=== PATIENT | male | born 1990 | race American Indian/Alaskan Native ===

== ENCOUNTER 2017-11-12 22:30 | Emergency (ER) | payer OTHER, MEDICARE ==
[2017-11-12] MEDS: DUONEB *Not for PRN Use IH ONE ×2 (22:54→22:59)
[2017-11-12] MEDS ORDERED: TYLENOL ONE (23:04)
[2017-11-12] MEDS ORDERED: TYLENOL PO ONE ×2 (23:07→23:30)
[2017-11-12 23:18] LABS: Basophils % (Auto) 0.4 % (0.0-1.8); Hematocrit 47.4 % (35.5-45.6); Hemoglobin 16.1 gm/dl (11.8-15.2); Lymphocytes # (Auto) 0.6 K/mm3 (1.2-5.4); Lymphocytes % (Auto) 7.4 % (13.4-35.0); Mean Corpuscular HGB Conc 34 % (32-34); Mean Corpuscular Hemoglobin 33 pg (28-32); Mean Corpuscular Volume 96 fl (84-94); Monocytes # (Auto) 0.5 K/mm3 (0.0-0.8); Monocytes % (Auto) 6.1 % (0.0-7.3); Red Blood Count 4.92 M/mm3 (3.65-5.03); Red Cell Distribution Width 12.9 % (13.2-15.2)
[2017-11-12 23:23] LABS: Platelet Count 203 K/mm3 (140-440)
[2017-11-12 23:25] LABS: BUN/Creatinine Ratio 10; Blood Urea Nitrogen 11 mg/dL (9-20); Hemolysis Index 21
[2017-11-12] MEDS ORDERED: ATROVENT IH ONE (23:29)
[2017-11-12] MEDS ORDERED: XOPENEX IH ONE (23:29)
[2017-11-12] MEDS ORDERED: AUGMENTIN ORAL LIQD PO ONE (23:30)
--- NOTE | 2017-11-12 23:36 | Emergency Department Report ---
ED Asthma HPI - General Chief Complaint: Adult Asthma Stated Complaint: FEVER,ASTHMA Time Seen by Provider: 11/12/17 23:23 Source: patient Mode of arrival: Ambulatory Limitations: No Limitations - History of Present Illness Initial Comments: Patient is 27 years old male, mentally challenged, provided by parents with an episode of asthma exacerbation and fever since yesterday. Parents stated that he been having runny nose cough and congestion also. No vomiting. No other symptoms at this moment. Patient is nonverbal so history is taken from parents. MD Complaint: "asthma attack" -: days(s) Severity: moderate Context: recent URI Associated Symptoms: productive cough Treatments Prior to Arrival: inhaled bronchodilator - Related Data Home Medications Medication Instructions Recorded Confirmed Last Taken ALBUTEROL NEB's [Proventil 0.083% 1 ampul IH Q4H PRN 11/12/17 11/12/17 Unknown NEBS] Budesonide 1 unit IH BID 11/12/17 11/12/17 Unknown Allergies Allergy/AdvReac Type Severity Reaction Status Date / Time erythromycin base Allergy Rash Verified 11/12/17 22:41 morphine Allergy Rash Verified 11/12/17 22:40 ED Review of Systems ROS: Stated complaint: FEVER,ASTHMA Other details as noted in HPI Comment: Unobtainable due to pts medical conditions ED Past Medical Hx - Past Medical History Hx Asthma: Yes Additional medical history: Sinusitis, Developmentally delayed - Social History Smoking Status: Never Smoker Substance Use Type: None - Medications Home Medications: Home Medications Medication Instructions Recorded Confirmed Last Taken Type ALBUTEROL NEB's [Proventil 0.083% 1 ampul IH Q4H PRN 11/12/17 11/12/17 Unknown History NEBS] Budesonide 1 unit IH BID 11/12/17 11/12/17 Unknown History ED Physical Exam - General Limitations: No Limitations General appearance: alert, in no apparent distress - Head Head exam: Present: atraumatic, normocephalic - Eye Eye exam: Present: normal appearance - ENT ENT exam: Present: normal exam, normal orophraynx, mucous membranes moist - Neck Neck exam: Present: normal inspection, full ROM. Absent: tenderness, meningismus, lymphadenopathy - Respiratory Respiratory exam: Present: wheezes, rhonchi, prolonged expiratory. Absent: respiratory distress, rales, stridor, accessory muscle use, decreased breath sounds - Cardiovascular Cardiovascular Exam: Present: tachycardia - GI/Abdominal GI/Abdominal exam: Present: soft, normal bowel sounds. Absent: distended, tenderness, guarding, rebound, rigid, organomegaly, mass, bruit, pulsatile mass , hernia - Extremities Exam Extremities exam: Present: normal inspection, full ROM, normal capillary refill - Back Exam Back exam: Present: normal inspection, full ROM. Absent: CVA tenderness (L) - Neurological Exam Neurological exam: Present: alert - Skin Skin exam: Present: warm, intact, normal color ED Course Vital Signs 11/12/17 11/12/17 11/12/17 22:43 22:58 23:42 Temperature 100.4 F H 99.7 F H Pulse Rate 146 H 150 H Pulse Rate [ 80 Right Lower Lobe] Respiratory 28 H 24 Rate Respiratory 18 Rate [Right Lower Lobe] Blood Pressure 122/76 Blood Pressure 123/65 [Left] O2 Sat by Pulse 96 98 Oximetry 11/12/17 11/13/17 23:46 00:04 Temperature Pulse Rate Pulse Rate [ 82 Right Lower Lobe] Respiratory 150 H Rate Respiratory 18 Rate [Right Lower Lobe] Blood Pressure Blood Pressure [Left] O2 Sat by Pulse Oximetry - Reevaluation(s) Reevaluation #1: 11/13/17 02:00 Patient looks much better, no restlessness. I advised patient parents to follow up with his art psychotherapist or therapist in the next 2-3 days. ED Medical Decision Making - Lab Data Result diagrams: 11/12/17 22:50 11/12/17 22:50 Critical care attestation.: If time is entered above; I have spent that time in minutes in the direct care of this critically ill patient, excluding procedure time. ED Disposition Clinical Impression: Asthma exacerbation, Acute bronchitis Disposition: DC-01 TO HOME OR SELFCARE Is pt being admited?: No Condition: Stable Instructions: Acute Bronchitis (ED), Asthma (ED)
[2017-11-12 23:43] VITALS: BP 123/65
--- NOTE | 2017-11-13 00:07 | XRay Report ---
FINAL REPORT EXAM: XR CHEST ROUTINE 2V HISTORY: wheezing and fever TECHNIQUE: PA and lateral views of the chest were submitted. FINDINGS: The heart size and mediastinum appear normal. There are no localized infiltrates or effusions. The lungs are not congested. The skeletal structures reveal a dextroscoliosis of the mid thoracic spine. IMPRESSION: No active chest disease.
== END 2017-11-13 02:17 | disposition home or self-care (01) ==
LOC: ED 22:30
DX: J45.901 Unspecified asthma with (acute) exacerbation (principal); J20.9 Acute bronchitis, unspecified; Z88.6 Allergy status to analgesic agent
CPT/HCPCS: 36415; 71046; 80048; 85025; 96372; 99284; J2930